=== PATIENT | male | born 1940 | race Caucasian/White ===

== ENCOUNTER 2017-02-20 17:21 | Inpatient (IN) | payer MEDICARE ==
[2017-02-20 18:22] LABS: Hematocrit 38 % (42-52); Hemoglobin 11.9 g/dl (14.0-18.0); Mean Corpuscular HGB Conc 31 g/dl (31-36); Mean Corpuscular Hemoglobin 26 pg (27-31); Mean Corpuscular Volume 83 fL (80-94); Mean Platelet Volume 8 um3 (7.4-10.4); Red Blood Count 4.57 10^6/ul (4.0-5.4); Red Cell Distribution Width 19 % (10.5-15); White Blood Count 7.6 10^3/ul (3.5-10.8)
[2017-02-20 18:33] LABS: Albumin 3.6 g/dL (3.2-5.2); BUN/Creatinine Ratio 17.8 (8-20); C Reactive Protein 15.29 mg/L (< 5.00); Calcium 9.3 mg/dL (8.6-10.3); EGFR African American 86.9 (>60); EGFR Non-African American 67.6 (>60); Globulin 3.5 g/dL (2-4); Potassium 3.6 mmol/L (3.5-5.0); Total Bilirubin 0.9 mg/dL (0.2-1.0); Total Protein 7.1 g/dL (6.4-8.9)
--- NOTE | 2017-02-20 18:48 | RAD ---
INDICATION: Intracranial injury. Patient is on Coumadin COMPARISON: None TECHNIQUE: Noncontrast axial source images were acquired from the skull base to the vertex. FINDINGS: Ventricles/sulci: The ventricles and cisterns are normal in size and configuration for age. Brain parenchyma: There is no focal parenchymal finding, evidence of intracranial mass, or intracranial mass effect. Intracranial hemorrhage:None. Extra-axial spaces: There are no abnormal extra axial fluid collections or evidence of extra-axial mass. Calvarium: There is no calvarial fracture or other calvarial abnormality. Scalp: There is no evidence of scalp or extracalvarial soft tissue abnormality. Paranasal sinuses/mastoid: The paranasal sinuses and mastoid air cells are clear. Other: None. IMPRESSION: No acute intracranial findings
--- NOTE | 2017-02-20 19:13 | RAD ---
INDICATION: Right hip fracture COMPARISON: None TECHNIQUE: An AP supine view is submitted. FINDINGS: Bones/Soft Tissues: There are no acute bony findings. Cardiomediastinal: The correct silhouette and central pulmonary vessels and interstitium are prominent compatible with mild interstitial congestion. Lungs: There are no infiltrates. Pleura: There are no pleural effusions. Other: None IMPRESSION: MILD INTERSTITIAL CONGESTION.
--- NOTE | 2017-02-20 19:14 | RAD ---
INDICATION: Right hip fracture COMPARISON: None TECHNIQUE: An AP view of the pelvis and AP views and crosstable lateral views of the right hip were acquired. FINDINGS: Bones: There is an intratrochanteric fracture of the right femur with resultant varus deformity. Joint spaces: The femoral heads are seated in the acetabula. SI joints/symphysis: The SI joints and symphysis are intact. Other: None IMPRESSION: INTERTROCHANTERIC FRACTURE RIGHT FEMUR
[2017-02-20] MEDS ORDERED: NS 0.9% 1000 ML* 1,000 ML IV ONE (19:28)
[2017-02-20] MEDS ORDERED: Ondansetron INJ* 2 MG/ML VIAL IV ONE (19:28)
[2017-02-20] MEDS ORDERED: HYDROmorphone* 1 MG/ML 1 ML SYR IV ONE (19:28)
--- NOTE | 2017-02-20 20:03 | ED ---
Christian Ang Erika, scribed for Christina Harding MD on 02/20/17 at 1932 . Lower Extremity - HPI Summary HPI Summary: Patient is a 76-year-old male presenting to the ED with his and children with a CC of right hip pain s/p mechanical fall around 16:00 today. Patient reports that he was taking his shirt in the bathroom when he tripped and fell. Patient states he was not dizzy before the fall. He denies headache, and does not think he hit his head. Patient was discharged from [facility] on 01/25 after another fall, and slowly began walking without a walker. Hx CHF - uses home O2. Hx COPD. Patient takes a blood thinner. He denies Hx ID, stroke, CABG. Patient does not smoke, drink, or use drugs. He is followed by Dr. Zepeda. - History of Current Complaint Chief Complaint: EDExtremityLower Stated Complaint: FALL-HIP INJURY Time Seen by Provider: 02/20/17 17:43 Hx Obtained From: Patient, Family/[employer] Clerk Mechanism Of Injury: Fall From A Standing Position Onset of Pain: Post Accident Onset/Duration: Hours Severity Currently: Moderate Pain Intensity: 8 Pain Scale Used: 0-10 Numeric Timing: Constant Location: Is Discrete @ - R hip Associated Signs And Symptoms: Negative: Dizziness, Syncope Aggravating Factor(s): Weight Bearing - Allergies/Home Medications Allergies/Adverse Reactions: Allergies Allergy/AdvReac Type Severity Reaction Status Date / Time Penicillins [PCN] Allergy Unknown Verified 02/20/17 19:49 Reaction Details PMH/Surg Hx/FS Hx/Imm Hx Endocrine/Hematology History: Reports: Hx Diabetes Cardiovascular History: Reports: Hx Atrial Fibrillation, Hx Congestive Heart Failure, Hx Hypertension Denies: Hx Myocardial Infarction Respiratory History: Reports: Hx Chronic Obstructive Pulmonary Disease (COPD) Infectious Disease History: No Infectious Disease History: Denies: Traveled Outside the [place] in Last 30 Days - Family History Known Family History: Negative: Diabetes - Social History Lives: With Family Alcohol Use: None Hx Substance Use: No Substance Use Type: Reports: None Hx Tobacco Use: No Smoking Status (MU): Never Smoked Tobacco Review of Systems Positive: Arthralgia - R hip Negative: Headache, Syncope All Other Systems Reviewed And Are Negative: Yes Physical Exam Triage Information Reviewed: Yes Vital Signs On Initial Exam: Initial Vitals Temp Pulse Resp BP Pulse Ox 98.1 F 95 26 117/56 99 02/20/17 17:44 02/20/17 17:44 02/20/17 17:44 02/20/17 17:44 02/20/17 17:44 Vital Signs Reviewed: Yes Appearance: Positive: Well-Appearing, No Pain Distress Skin: Positive: Warm, Skin Color Reflects Adequate Perfusion, Dry Eyes: Positive: EOMI, MARSHALL ENT: Positive: Pharynx normal, TMs normal Neck: Positive: Supple, Nontender Respiratory/Lung Sounds: Positive: Clear to Auscultation, Breath Sounds Present , Other - Tachypnic, seems to be at baseline. Negative: Rales, Rhonchi, Wheezes Cardiovascular: Positive: RRR, Other - No gallops. Negative: Murmur, Rub Abdomen Description: Positive: Nontender, Soft, Other: - No rebound. Negative: Distended, Guarding Bowel Sounds: Positive: Present Musculoskeletal: Positive: Other - Right hip is externally rotated. Right toes are warm, difficult to feel pulse secondary to edema. There is 2+ edema to the mid thigh of the bilateral lower extremities, with no erythema Neurological: Positive: Sensory/Motor Intact, Alert, Oriented to Person Place, Time, Other - CN II-XII intact Psychiatric: Positive: Affect/Mood Appropriate - Mora Coma Scale Coma Scale Total: 15 Diagnostics - Vital Signs Vital Signs Temp Pulse Resp BP Pulse Ox 02/20/17 18:00 58 26 117/56 97 02/20/17 17:46 59 22 100 02/20/17 17:44 98.1 F 95 26 117/56 99 - Laboratory Lab Results: Lab Results 02/20/17 02/20/17 02/20/17 Range/Units 18:00 18:00 18:00 WBC 7.6 (3.5-10.8) 10^3/ul RBC 4.57 (4.0-5.4) 10^6/ul Hgb 11.9 L (14.0-18.0) g/dl Hct 38 L (42-52) % MCV 83 (80-94) fL MCH 26 L (27-31) pg MCHC 31 (31-36) g/dl RDW 19 H (10.5-15) % Plt Count 208 (150-450) 10^3/ul MPV 8 (7.4-10.4) um3 Neut % (Auto) 84.4 H (38-83) % Lymph % (Auto) 4.5 L (25-47) % [place] % (Auto) 6.5 (1-9) % Eos % (Auto) 2.3 (0-6) % Baso % (Auto) 2.3 H (0-2) % Absolute Neuts (auto) 6.4 (1.5-7.7) 10^3/ul Absolute Lymphs (auto) 0.3 L (1.0-4.8) 10^3/ul Absolute Monos (auto) 0.5 (0-0.8) 10^3/ul Absolute Eos (auto) 0.2 (0-0.6) 10^3/ul Absolute Basos (auto) 0.2 (0-0.2) 10^3/ul Absolute Nucleated RBC 0 10^3/ul Nucleated RBC % 0.1 INR (Anticoag Therapy) 2.83 H (0.89-1.11) Sodium 142 (133-145) mmol/L Potassium 3.6 (3.5-5.0) mmol/L Chloride 97 L (101-111) mmol/L Carbon Dioxide 42 H* (22-32) mmol/L Anion Gap 3 (2-11) mmol/L BUN 19 (6-24) mg/dL Creatinine 1.07 (0.67-1.17) mg/dL Est GFR ( Amer) 86.9 (>60) Est GFR (Non-Af Amer) 67.6 (>60) BUN/Creatinine Ratio 17.8 (8-20) Glucose 113 H (70-100) mg/dL POC Glucose (mg/dL) (74-106) mg/dL Calcium 9.3 (8.6-10.3) mg/dL Total Bilirubin 0.90 (0.2-1.0) mg/dL AST 14 (13-39) U/L ALT 9 (7-52) U/L Alkaline Phosphatase 184 H (34-104) U/L C-Reactive Protein 15.29 H (< 5.00) mg/L Total Protein 7.1 (6.4-8.9) g/dL Albumin 3.6 (3.2-5.2) g/dL Globulin 3.5 (2-4) g/dL Albumin/Globulin Ratio 1.0 (1-3) 02/20/17 Range/Units 19:46 WBC (3.5-10.8) 10^3/ul RBC (4.0-5.4) 10^6/ul Hgb (14.0-18.0) g/dl Hct (42-52) % MCV (80-94) fL MCH (27-31) pg MCHC (31-36) g/dl RDW (10.5-15) % Plt Count (150-450) 10^3/ul MPV (7.4-10.4) um3 Neut % (Auto) (38-83) % Lymph % (Auto) (25-47) % [place] % (Auto) (1-9) % Eos % (Auto) (0-6) % Baso % (Auto) (0-2) % Absolute Neuts (auto) (1.5-7.7) 10^3/ul Absolute Lymphs (auto) (1.0-4.8) 10^3/ul Absolute Monos (auto) (0-0.8) 10^3/ul Absolute Eos (auto) (0-0.6) 10^3/ul Absolute Basos (auto) (0-0.2) 10^3/ul Absolute Nucleated RBC 10^3/ul Nucleated RBC % INR (Anticoag Therapy) (0.89-1.11) Sodium (133-145) mmol/L Potassium (3.5-5.0) mmol/L Chloride (101-111) mmol/L Carbon Dioxide (22-32) mmol/L Anion Gap (2-11) mmol/L BUN (6-24) mg/dL Creatinine (0.67-1.17) mg/dL Est GFR ( Amer) (>60) Est GFR (Non-Af Amer) (>60) BUN/Creatinine Ratio (8-20) Glucose (70-100) mg/dL POC Glucose (mg/dL) 127 H (74-106) mg/dL Calcium (8.6-10.3) mg/dL Total Bilirubin (0.2-1.0) mg/dL AST (13-39) U/L ALT (7-52) U/L Alkaline Phosphatase (34-104) U/L C-Reactive Protein (< 5.00) mg/L Total Protein (6.4-8.9) g/dL Albumin (3.2-5.2) g/dL Globulin (2-4) g/dL Albumin/Globulin Ratio (1-3) Result Diagrams: 02/20/17 18:00 02/20/17 18:00 Lab Statement: Any lab studies that have been ordered have been reviewed, and results considered in the medical decision making process. - Radiology CXR Radiology Interpretation Completed By: Radiologist - IMPRESSION: MILD INTERSTITIAL CONGESTION. R Hip XR Radiology Interpretation Completed By: Radiologist - IMPRESSION: INTERTROCHANTERIC FRACTURE RIGHT FEMUR - CT Brain CT CT Interpretation Completed By: Radiologist - IMPRESSION: No acute intracranial findings - EKG 19:00 Cardiac Rate: Tachycardia - at 114 bpm EKG Rhythm: Atrial Fibrillation ST Segment: Non-Specific Ectopy: PVCs EKG Interpretation: LVH Re-Evaluation - Re-Evaluation First Eval Re-Evaluation Time: 19:40 Comment: Discussed admission Lower Extremity Course/Dx - Course Course Of Treatment: call made to Dr. Alvarez to make her aware of pt, Dr. Martinez accepted pt onto hospitalist service - Diagnoses Provider Diagnoses: Hip fracture - Physician Notifications Discussed Care of Patient With: Dr. Alvarez (orthopedics) at 19:33 - recommends admission. Dr. Martinez (hospitalist) at 19:34 - agrees to admit Discharge - Discharge Plan Condition: Stable Disposition: ADMITTED TO [facility] Referrals: Duane GALEANA,Steffi Barragan [Primary Care Provider] - The documentation as recorded by the Christian avila Erika accurately reflects the service I personally performed and the decisions made by me, Christina Harding MD.
[2017-02-20] MEDS ORDERED: Magnesium Hydroxide LIQ* 30 ML UDC PO PRN (20:04)
[2017-02-20] MEDS ORDERED: Al Hydrox/Mg Hydrox/Simet LIQ* 30 ML UDC PO PRN (20:04)
[2017-02-20] MEDS ORDERED: Ondansetron INJ* 2 MG/ML VIAL IV PRN (20:04)
[2017-02-20] MEDS ORDERED: oxyCODONE/Acetamin 5/325 MG* TAB PO PRN (20:04)
[2017-02-20] MEDS ORDERED: Acetaminophen TAB* 325 MG PO PRN (20:04)
[2017-02-20] MEDS ORDERED: Phytonadione Oral Solution* 5 MG/25 ML UDC PO ONE (20:18)
[2017-02-20] MEDS ORDERED: Dextrose 50% Syringe 50 ML* 25 GM/50 ML SYRINGE IV PUSH PRN ×2 (20:19→20:20)
[2017-02-20 20:27] LABS: Troponin I 0.03 ng/mL (<0.04)
[2017-02-20] MEDS ORDERED: Potassium Chlor TAB* 20 MEQ TAB.ER PO ONE (20:39)
[2017-02-20] MEDS: Insulin GLARGINE(*) 1 UNITS UNIT SUBCUT SCH (23:09)
[2017-02-20] MEDS: Docusate CAP* 100 MG PO SCH (23:09)
[2017-02-20] MEDS: Senna TAB PO SCH (23:09)
[2017-02-20] MEDS: Carvedilol TAB* 6.25 MG PO SCH (23:09)
[2017-02-21] MEDS: Omeprazole CAP* 20 MG PO SCH (05:12)
[2017-02-21 06:08] LABS: Hematocrit 32 % (42-52); Hemoglobin 9.8 g/dl (14.0-18.0); Mean Corpuscular HGB Conc 31 g/dl (31-36); Mean Corpuscular Hemoglobin 26 pg (27-31); Mean Corpuscular Volume 84 fL (80-94); Mean Platelet Volume 8 um3 (7.4-10.4); Red Blood Count 3.74 10^6/ul (4.0-5.4); Red Cell Distribution Width 19 % (10.5-15); White Blood Count 9.4 10^3/ul (3.5-10.8)
[2017-02-21 06:26] LABS: BUN/Creatinine Ratio 17.3 (8-20); Calcium 8.5 mg/dL (8.6-10.3); EGFR African American 71.3 (>60); EGFR Non-African American 55.4 (>60); Globulin 2.8 g/dL (2-4); Potassium 4.6 mmol/L (3.5-5.0); Total Bilirubin 0.7 mg/dL (0.2-1.0); Total Protein 5.8 g/dL (6.4-8.9)
--- NOTE | 2017-02-21 07:26 | HP ---
HISTORY AND PHYSICAL: DATE OF ADMISSION: 02/20/17 TIME OF EVALUATION: 2000 hours. PRIMARY CARE PHYSICIAN: Steffi Zepeda MD CHIEF COMPLAINT: Right hip pain. HISTORY OF PRESENT ILLNESS: This is a 76-year-old male with a past medical history of congestive heart failure; diabetes; and atrial fibrillation, on Coumadin, who presented to the emergency room via EMS after falling, losing his balancing in the bathroom and injuring his right hip. The patient states he had been doing well. He was recently hospitalized at [facility] for congestive heart failure, was in the ICU briefly. He also had hypercapnic respiratory failure from January 11 to January 25. He was discharged to home, has been improving with his ambulation. He climbed a flight of stairs today without any shortness of breath or chest pain. He was in the bathroom today and taking his short off, he lost his balance, and tripped over the rug and fell. He denied any loss of consciousness. No head injury. He denied any lightheadedness or dizziness or chest pain or shortness of breath prior to or after the fall. His only complaint is right hip pain at this time. In the emergency room, the patient had imaging, labs, and was found to have a right femur intertrochanteric fracture. Otherwise remaining review of systems is negative. In the emergency room, the patient had received 0.5 mg of Dilaudid, Zofran 4 mg, and was referred to the hospitalist service for further evaluation. PAST MEDICAL HISTORY: 1. History of congestive heart failure, unspecified type. 2. Diabetes. 3. GERD. 4. Atrial fibrillation. 5. Hyperlipidemia. 6. Recent admission from [facility] January 11 to January 25 for congestive heart failure and hypercapnic respiratory failure, was not intubated at that time, required ICU admission. 7. History of pancreatitis, status post partial pancreatectomy and cholecystectomy in 1990. MEDICATIONS: 1. Humulin 70/30, 15 units in the morning and 20 units in the evening. If under 150, only 10 units in the evening. 2. Simvastatin 40 mg 1 tab at bedtime. 3. Omeprazole 20 mg daily in the morning. 4. Cardizem 100 mg daily in the morning. 5. Lasix 40 mg p.o. b.i.d. 6. Coreg 12.5 mg p.o. b.i.d. 7. Warfarin 5 mg Wednesday, Wednesday, and Wednesday and 2.5 mg Wednesday, Wednesday, , and Wednesday. 8. Multivitamin. ALLERGIES: PENICILLIN and ASPIRIN. FAMILY HISTORY: Mother in her 90s. Father at age 85, unclear of the case. SOCIAL HISTORY: The patient lives at home with his , Ce, who is his health care proxy. He has been walking independently and is dependent of his ADLs. He does not walk with a cane, uses that as needed. He quit smoking more than 26 years ago, was smoking a pack per day up to 30 years. No alcohol use. Code status: DNR/DNI. We will have him fill up the [facility]OL[facility] form here. REVIEW OF SYSTEMS: As mentioned in the HPI. PHYSICAL EXAMINATION GENERAL: In no acute distress. Resting comfortably with his , daughter, and son-in-law at the bedside. VITAL SIGNS: Temp is 98.1, pulse rate 108, respiratory rate 22, oxygen saturation is 90% on 6 L, and blood pressure 103/55. HEENT: Pupils are equal and reactive, anicteric. Head: Normocephalic. Oropharynx: Mucous membranes moist. No erythema or exudate. NECK: Supple. No lymphadenopathy. RESPIRATORY: Diminished breath sounds. No wheezing, rhonchi, or rales. CARDIAC: Irregularly irregular rate and rhythm. Soft systolic murmur heard throughout. ABDOMEN: Morbidly obese, soft, nontender, and nondistended. EXTREMITIES: No clubbing, cyanosis, or edema. Chronic hemosiderin vascular insufficiency changes; +1 DPs. NEUROLOGIC: The patient with a shortened, externally rotated right lower extremity, limited range of motion due to pain. No gross focal neurologic deficits. DIAGNOSTIC STUDIES/LAB DATA: Laboratory data: White count 7.6, hemoglobin 11.9, hematocrit 38, and platelets 208. INR is 2.83. Sodium 142, potassium 3.6 , chloride 97, bicarb 22, BUN 19, creatinine 1.07, and glucose 127. CRP is 15.29. Radiographic data: Chest x-ray: Mild interstitial congestion. EKG shows atrial fibrillation with some ST depression in the lateral leads. Hip and pelvis x-ray: Intertrochanteric fracture of the right femur. Head CT: No acute intracranial findings. ASSESSMENT AND PLAN: This is a 76-year-old male with past medical history of congestive heart failure; diabetes; and atrial fibrillation, on Coumadin, who presents to the emergency room after having a mechanical fall, found to have a right femur intertrochanteric fracture. 1. Fall: Assessment: The patient appears to have a mechanical fall, found to have a right femur intertrochanteric fracture. Dr. Alvarez was notified in the emergency room. Due to the patient's INR being 2.83, no indication for emergent surgery or any surgery in the morning either. Plan: We will give him a dose of vitamin K now and check his INR tomorrow. We will keep him with pain control with morphine, oxycodone, and Tylenol as needed and bowel regimen and follow up with ortho in the morning. There is no absolute contraindication to proceeding with surgery other than normalizing his INR. His RCRI risk scoring is 2 for heart failure and diabetes , on insulin therapy. His MET score is greater than 4 and above as he climbs a flight of stairs without any symptoms today. I would recommend obtaining records from [facility] and getting the echocardiogram that was done there this past month to review that. CHRONIC MEDICAL PROBLEMS: 1. Congestive heart failure: His chest x-ray showed some interstitial edema. His lungs are clear on exam. He is denying any shortness of breath. He was recently admitted for congestive failure and on high doses of Lasix at this time. Plan: We will hold his evening Lasix and reassess him in the morning to see if this should be resumed. We will resume his morning Lasix. 2. Atrial fibrillation: Assessment: As mentioned, the patient is on Coumadin. We will hold this for procedure. His EKG does show some mild ST depression, could be in the setting of his atrial fibrillation, demand ischemia , and fall. We will check a troponin and trend it x2 as he is asymptomatic. Plan: Continue his Cardizem and Coreg and we will keep him on tele for now and we will check a magnesium as well and replete his potassium. 3. Gastroesophageal reflux disease: Continue with omeprazole. 4. Diabetes: We will place him on Lantus and lispro sliding scale. 5. FEN: We will place the patient on diabetic diet. 6. DVT prophylaxis: The patient is therapeutic on Coumadin. We will place him on SCDs and start him on heparin once his INR trends down. 7. Code status: The patient is a DNR/DNI. We discuss for surgery this will be rescinded. He is agreeable to that and will be discussed and presumed with Ortho if surgery does occur. PATIENT TIME: Greater than 90 minutes was spent doing the history and physical , more than half the time was spent in direct patient contact. CC: Steffi Zepeda MD * [id number]/CPS #: [id number] MTDD
[2017-02-21 10:28] LABS: Venous Bicarbonate HCO3 33.8 mmol/L (24-28)
[2017-02-21] MEDS: Insulin LISPRO* 1 UNITS UNIT SUBCUT SCH ×6 (10:36→17:50)
--- NOTE | 2017-02-21 11:58 | RAD ---
INDICATION: Right femoral fracture COMPARISON: Right hip February 20, 2017 TECHNIQUE: AP and lateral views were obtained. FINDINGS: There is again a fracture of the intratrochanteric region of the right femur with comminution and varus deformity. There is a longitudinally oriented component of the fracture involving the proximal diaphysis. There are no additional femoral fractures. IMPRESSION: PROXIMAL FEMORAL FRACTURE DESCRIBED.
[2017-02-21] MEDS ORDERED: LORazepam INJ* 2 MG/ML 1 ML VIAL ONE (12:02)
[2017-02-21] MEDS ORDERED: LORazepam INJ* 2 MG/ML 1 ML VIAL IV PUSH ONE (12:04)
[2017-02-21 13:17] LABS: EPAP 8; FIO2 50; IPAP 18; Resp Rate 12
[2017-02-21 13:24] LABS: PCO2 Arterial 100 mmHg (35-45)
[2017-02-21] MEDS: Furosemide TAB* 40 MG PO SCH (13:36)
[2017-02-21] MEDS: Potassium Chlor TAB* 20 MEQ TAB.ER PO SCH ×2 (13:36→21:55)
[2017-02-21] MEDS: Docusate CAP* 100 MG PO SCH ×2 (13:36→21:55)
[2017-02-21] MEDS: Diltiazem CD CAP* 120 MG PO SCH (13:36)
[2017-02-21] MEDS: Carvedilol TAB* 6.25 MG PO SCH ×2 (13:36→21:55)
[2017-02-21] MEDS: Senna TAB PO SCH ×2 (13:37→21:55)
--- NOTE | 2017-02-21 13:43 | CONSULT ---
Consult Consult: CRITICAL CARE MEDICINE DATE: 02/21/17 TIME: 1330 REFERRING PROVIDER: Yazmin REASON/CHIEF COMPLAINT: acute hypercarbic resp failure on chronic HISTORY OF PRESENT ILLNESS: 76 M with h/o copd, chronic hypercapnic resp failure on 2L O2 at home with recent admission to [facility] with acute on chronic failure requiring ICU. tells me he had a fall there and his breathing was worse after as well. They used nasal cannuli and bipap tx. Never intubated. Ambulates at home. Often non-adherent with O2 and stubborn. REVIEW OF SYSTEMS: As per HPI. PAST MEDICAL HISTORY: As per HPI. Afib on coumadin, chf, dm, gerd, lipids MEDICATIONS: Reviewed. ALLERGIES: Reviewed. SOCIAL HISTORY: Reviewed. . proxy FAMILY HISTORY: Noncontributory at present. PHYSICAL EXAM: Vital Signs: Reviewed. Neurologic: stupor, pupils equal and some stimuli to pain. myoclonus at neck bl ; holds up arms when raised and lowers gently HEENT: anicteric, reactive. +dentures Cardiovascular: S1 S2, irr irr Respiratory: poor air exchange and excursion. placed on bipap with better chest rise, however concern for upper airway obstruction still. no wheeze Abdomen: obese, soft Extremities: R hip changes consistent with his fx Access: poor piv LABS: Reviewed. IMAGING: Reviewed. MEDICATIONS: Reviewed. ASSESSMENT: 76 M Acute on chronic hypercarpbic resp failure COPD exac in setting of narcotic use overnight and acute stress of trauma CAF on anticoagulation - therapeutic, although received vit k Uncontrolled DM PLAN: Neurologic: CO2 narcosis - acute on chronic. placed on bipap. however his myoclonus associated with this was not allowing proper bipap flow and seal. given 1mg ativan with dissipation of this. Chose not to give narcan immediately as he will still need pain control and although this may have presipitated his ailment he cannot rescue without bipap regardless now and since we had to give ativan it may have less affect. Therefore give him some time with bipap to see if he can improve CO2 and drive pH over 7.2 where he should improve mentation, and if not quite there may need to try narcan. Doesn't seem like a central process but has been on coumadin, with afib, and post fall. May need another head ct, but can wait on such. Cardiovascular: Low end perfusion. Hemodynamics holding. some dep fluid but wouldn't push one way or the other just yet. f/u rate control needs Respiratory: bipap as above. hope to avoid intubation as wishes were for DNI as well, and he has rescued previously with bipap. can start a pulse of steroids for what it is worth without wheeze Gastrointestinal: npo. Renal/Metabolic: Cr had gone up post diuretics last pm. has intestinal volume and allow him a recovery tonicity state to mobilize Infectious Disease: no current Hematology: stable. inr to drift. Endocrine: steroids. f/u insulin needs Musculoskeletal: ortho f/u Psych/Social: updated at length. She is supportive of plans and prefers to avoid intubation as well but would change to trial intubation. Supportive and preventative care as ordered. SUP: ppi if remaining npo for long VTE prophylaxis: heparin Disposition: ICU; at risk for intubation needs Code Status: DNR Critical Care Time: 55min FCira Chand DO
[2017-02-21] MEDS ORDERED: Naloxone* 0.4 MG/ML 1 ML VIAL IV PUSH ONE (13:59)
[2017-02-21] MEDS: methylPREDNISolone SOD SUCC* 40 MG/ML VIAL IV SCH ×2 (14:25→22:12)
--- NOTE | 2017-02-21 15:25 | PN ---
Progress Note - Progress Note Note: CRITICAL CARE MEDICINE DATE: 02/21/17 TIME: 1530 Slowly showing some improvement. Certainly better signs of ventilation on bipap now with TV ~600mls. Daughter and grandkids arrived. We re-discussed dynamics and again discussed avoiding intubation as best option for him overall currently. Explained why not to repeat abg at moment and to continue to observe clinical status. If still not able to progress to improved lucency tonight then may require intubation, and family is in agreement. We discussed many ailments assocaited with this route but they again express understanding. Pt starting to move more spont and attempted eye opening and simple command follows but still obtunded. Close follow and keep bipap until he is lucid, otherwise can continue to wear through night. o2 stable and pH >7.2 ICU care. Code Status: DNR, trial intubation Critical Care Time: 15min Cruz Chand DO
--- NOTE | 2017-02-21 15:58 | PN ---
Progress Note - Progress Note Note: CRITICAL CARE MEDICINE DATE: 02/21/17 TIME: 1600 More awake. Following commands, just lethargic now. Improving. Family updated at bedside. Keep bipap another 2 hours or so and see if he can come off then to communicate. May have sips tonight but then needs bipap overnight. Code Status: DNR, trial intubation Critical Care Time: 5min Cruz Chand DO
--- NOTE | 2017-02-21 17:52 | PN ---
Subjective Date of Service: 02/21/17 Interval History: . Interviewed and examined patient at bedside; Discussed case with Dr. Martinez ; Reviewed previous notes and radiology results; patient is very lethargic this AM and state VBG revealed pCO2 > 110 --> urgent transfer to ICU initiated for BiPAP. Presumably, opiate suppression of respirations, then spiraling CO2 narcosis. Has suffered hypercarbic respiratory failure in recent hospitalization. DNI - but will accept NIPPV as per , and even ETT/MV if needed, but understandably we would like to support with NIPPV if possible. . Family History: Unchanged from Admission Social History: Unchanged from Admission Past Medical History: Unchanged from Admission Objective Active Medications: . Acetaminophen (Tylenol Tab*) 650 mg PO Q4H PRN PRN Reason: FEVER/PAIN Al Hydrox/Mg Hydrox/Simethicone (Maalox Plus*) 30 ml PO Q6H PRN PRN Reason: INDIGESTION Carvedilol (Coreg Tab*) 12.5 mg PO BID [facility] Last Admin: 02/21/17 13:36 Dose: Not Given Dextrose (D50w Syringe 50 Ml*) 12.5 gm IV PUSH .FOR FS < 60 - SS PRN PRN Reason: FS < 60 Diltiazem HCl (Cardizem Cd Cap*) 120 mg PO DAILY [facility] Last Admin: 02/21/17 13:36 Dose: Not Given Docusate Sodium (Colace Cap*) 100 mg PO BID [facility] Last Admin: 02/21/17 13:36 Dose: Not Given Furosemide (Lasix Tab*) 40 mg PO DAILY [facility] Last Admin: 02/21/17 13:36 Dose: Not Given Insulin Glargine (Lantus(*)) 10 units SUBCUT Q24H [facility] Last Admin: 02/20/17 23:09 Dose: 10 units Insulin Human Lispro (Humalog*) 0 units SUBCUT AC [facility] PRN Reason: Protocol Last Admin: 02/21/17 12:17 Dose: Not Given Insulin Human Lispro (Humalog*) 0 units SUBCUT AC [facility] PRN Reason: Protocol Last Admin: 02/21/17 12:28 Dose: Not Given Magnesium Hydroxide (Milk Of Magnesia Liq*) 30 ml PO Q4H PRN PRN Reason: CONSTIPATION Methylprednisolone Sodium Succinate (Solu-Medrol*) 40 mg IV Q8H [facility] Last Admin: 02/21/17 14:25 Dose: 40 mg Morphine Sulfate (Morphine Inj (Syringe)*) 2 mg IV Q2H PRN PRN Reason: PAIN Omeprazole (Prilosec Cap*) 20 mg PO 0600 [facility] Last Admin: 02/21/17 05:12 Dose: 20 mg Ondansetron HCl (Zofran Inj*) 4 mg IV Q4H PRN PRN Reason: NAUSEA/VOMITING Oxycodone/Acetaminophen (Percocet 5/325 Tab*) 1 tab PO Q4H PRN PRN Reason: Pain Last Admin: 02/21/17 04:46 Dose: 1 tab Potassium Chloride (Klor Con Er Tab*) 20 meq PO BID [facility] Last Admin: 02/21/17 13:36 Dose: Not Given Senna (Senokot Tab*) 1 tab PO BID [facility] Last Admin: 02/21/17 13:37 Dose: Not Given . Vital Signs 02/20/17 02/20/17 02/20/17 20:30 20:36 21:00 Temperature 97.4 F Pulse Rate 128 106 108 Respiratory 29 21 24 Rate Blood Pressure 110/59 88/58 (mmHg) O2 Sat by Pulse 81 96 98 Oximetry 02/20/17 02/20/17 02/21/17 23:19 23:20 03:39 Temperature 98.6 F 97.9 F Pulse Rate 46 108 145 Respiratory 16 16 Rate Blood Pressure 126/54 104/57 (mmHg) O2 Sat by Pulse 92 100 Oximetry Appearance: obtunded 2/2 CO2 narcosis Ears/Nose/Mouth/Throat: Clear Oropharnyx Neck: NL Appearance and Movements; NL JVP Respiratory: Symmetrical Chest Expansion and Respiratory Effort Cardiovascular: NL Sounds; No Murmurs; No JVD Abdominal: NL Sounds; No Tenderness; No Distention Lymphatic: No Cervical Adenopathy Extremities: No Edema Skin: No Rash or Ulcers Neurological: Alert and Oriented x 3 Lines/Tubes/Other Access: Clean, Dry and Intact Peripheral IV Nutrition: - - NPO Result Diagrams: 02/22/17 05:15 02/22/17 05:15 Additional Lab and Data: . Assess/Plan/Problems-Billing . Assessment: 76 yo man with mechanical MV and anticoagulated, now with fal land hip fx -- course immediately complicated by hypercarbic respiratory failure -- being treated with NIPPV/BIPAP. Transfer to ICU for severe hypercarbia (pCO2 > 110). Appreciate Dr. Chand's expert consultation in this case. Current Medications: - Acetaminophen (Tylenol Tab) 650 mg PO Q4H PRN FEVER/PAIN - Al Hydrox/Mg Hydrox/Simethicone (Maalox Plus) 30 ml PO Q6H PRN INDIGESTION - Carvedilol (Coreg Tab) 12.5 mg PO BID [facility] - Dextrose (D50w Syringe 50 Ml*) 12.5 gm IV PUSH .FOR FS < 60 - SS PRN FS < 60 - Diltiazem HCl (Cardizem Cd Cap) 120 mg PO DAILY - Docusate Sodium (Colace Cap) 100 mg PO BID - Furosemide (Lasix Tab) 40 mg PO DAILY - Insulin Glargine (Lantus) 10 units SUBCUT Q24H - Insulin Human Lispro (Humalog) 0 units SUBCUT AC - Insulin Human Lispro (Humalog) 0 units SUBCUT AC - Magnesium Hydroxide (Milk Of Magnesia Liq) 30 ml PO Q4H PRN CONSTIPATION - Methylprednisolone Sodium Succinate (Solu-Medrol) 40 mg IV Q8H - Morphine Sulfate (Morphine Inj (Syringe)) 2 mg IV Q2H PRN PAIN - Omeprazole (Prilosec Cap) 20 mg PO Daily - Ondansetron HCl (Zofran Inj) 4 mg IV Q4H PRN NAUSEA/VOMITING - Oxycodone/Acetaminophen (Percocet 5/325 Tab) 1 tab PO Q4H PRN Pain - Potassium Chloride (Klor Con Er Tab*) 20 meq PO BID [facility] - Senna (Senokot Tab*) 1 tab PO BID [facility] - Patient Problems (1) Acute hypercapnic respiratory failure Current Visit: Yes Status: Acute Priority: High Code(s): J96.02 - ACUTE RESPIRATORY FAILURE WITH HYPERCAPNIA Comment: - STAT valve liner rubber consult - BIPAP acutely - repeat ABG.VBGs as per ICU - poor prognosis (2) Hip fracture Current Visit: Yes Status: Acute Priority: High Code(s): S72.009A - FRACTURE OF UNSP PART OF NECK OF UNSP FEMUR, INIT Comment: - appreciate ortho consult - INR drift down --> switch to IV heparin for bridging - actively stabiizing respi status to allow for repair. - high risk patient given tenuous respiratory status. (3) Anticoagulated on Coumadin Current Visit: Yes Status: Chronic Priority: High Code(s): Z51.81 - ENCOUNTER FOR THERAPEUTIC DRUG LEVEL MONITORING; Z79.01 - [facility] (CURRENT) USE OF ANTICOAGULANTS Comment: - allowing INR to drift downward for posslbe surgery.
[2017-02-21] MEDS: Morphine INJ* 2 MG/ML 1 ML SYRINGE IV PRN (19:05)
--- NOTE | 2017-02-21 21:26 | CONS ---
ORTHOPEDIC CONSULTATION: DATE OF CONSULT: 02/21/17 CHIEF COMPLAINT: Right hip pain. HISTORY OF PRESENT ILLNESS: Mr. Feliciano is a 76-year-old gentleman who had a mechanical fall in his home on 02/20/17. The patient's reports that he lost his balance while taking shorts off in the bathroom and fell on to his right side. He did not have loss of consciousness or head injury. He did not have light headedness or dizziness. He complained of 10/10 right hip pain and was unable to stand or walk, and ambulance was called. Immobilization decreased the pain, any attempt to move the right hip increased the pain. The patient was taken to [facility] Emergency Room and diagnosed with an intertrochanteric hip fracture. Pertinent recent past medical history is recent hospitalization at [facility] for congestive heart failure as well as ICU stay for hypercapnic respiratory failure. The patient was released from [facility] on 01/24/17. I am asked to see the patient for orthopedic fracture care. Today at the bedside all history is obtained from the patient's as he is heavily sedated. PAST MEDICAL HISTORY: Congestive heart failure, history of open tibial wounds, diabetes, morbid obesity, atrial fibrillation, hyperlipidemia, recent respiratory failure admission to [facility], history of pancreatitis. PAST SURGICAL HISTORY: Partial pancreatectomy. CURRENT MEDICATIONS: 1. Humulin 70/30 q.a.m. and p.m. 2. Simvastatin 40 mg p.o. daily. 3. Omeprazole 20 mg p.o. q.a.m. 4. Cardizem 100 mg p.o. q.a.m. 5. Lasix 40 mg p.o. b.i.d. 6. Coreg 12.5 mg p.o. b.i.d. 7. Warfarin dose daily. 8. Multivitamin 1 tablet p.o. daily. ALLERGIES: PENICILLIN and ASPIRIN. FAMILY HISTORY: Unknown. SOCIAL HISTORY: The patient lives with his , normally ambulates with a rolling walker or cane. No tobacco, alcohol or recreational drug use. REVIEW OF SYSTEMS: Positive for recent fall, positive for recent respiratory distress and hospitalization. The patient's denies fevers, chills, chest pain or shortness of breath, nausea, vomiting, headache, or dizziness. Otherwise, review of systems cannot be obtained due to the patient's sedation. PHYSICAL EXAMINATION: Vital signs: Temperature 98.3, pulse of 87, respiratory rate 18, blood pressure 110/59, oxygen saturation 99% on 10L. General: The patient is heavily sedated male, who is morbidly obese in bed. is at the bedside. He does not arouse to calling his name. Pulmonary: The patient's chest shows some labored breathing. Abdomen: Rounded, soft, and nondistended. Extremities: Right lower extremity is externally rotated and shortened. He has superficial blisters along the distal tibia. Color changes with evidence of venostasis and prolonged edema distally on the tibia. No sayda open wounds, no draining open wounds. Thigh is soft and compressible. 1+ palpable DP pulse. RADIOGRAPHS: Multiple views of the patient's right hip were reviewed on the PAC system by me. These show comminuted intertrochanteric hip fracture with some subtrochanteric extension. I have no femur films. LABORATORY DATA: From 02/21/17 show white blood cells 9.4, hematocrit 32, platelets 183. INR 2.47. Sodium 142, potassium 4.6, chloride 99, carbon dioxide 39, creatinine 1.27, BUN 22, glucose 157, alk phos 135. C-reactive protein from 02/20/17 15.29. ASSESSMENT AND PLAN: Mr. Feliciano is a 76-year-old gentleman status post fall on 02/20/17 with a displaced comminuted right intertrochanteric hip fracture with subtrochanteric extension. Today, the patient is heavily sedated with some mild labored breathing. He is on high O2 by non-rebreather mask. I have asked medicine team to see the patient as he may need some Narcan versus an ABG. For now, I had a long discussion with the patient's , who is at the bedside. I feel the risk of morbidity or mortality for this patient is very high. We discussed the risks and benefits of operative and nonoperative treatment. She would like to proceed with operative treatment. I feel he is at high risk for having postoperative complications including . My plan will be cephalomedullary device for the right intertrochanteric hip fracture. I will order films of the femur before proceeding. Goal INR would be around 1.0. We will continue reversal of the patient's INR. I will check on the patient tomorrow, 02/22/17, and if his INR is appropriate, we can proceed with surgery. If not, we will plan for 02/23/17 ORIF of the right hip fracture. The patient's understands the plan and her question are answered. Thank you for this orthopedic consultation. [id number]/[facility] #: [id number] LETI
[2017-02-21] MEDS: Insulin GLARGINE(*) 1 UNITS UNIT SUBCUT SCH (21:56)
[2017-02-22] MEDS: Morphine INJ* 2 MG/ML 1 ML SYRINGE IV PRN ×5 (02:09→20:32)
[2017-02-22 05:25] LABS: Hematocrit 30 % (42-52); Hemoglobin 9.4 g/dl (14.0-18.0); Mean Corpuscular HGB Conc 32 g/dl (31-36); Mean Corpuscular Hemoglobin 26 pg (27-31); Mean Corpuscular Volume 84 fL (80-94); Mean Platelet Volume 8 um3 (7.4-10.4); Red Blood Count 3.54 10^6/ul (4.0-5.4); Red Cell Distribution Width 18 % (10.5-15); White Blood Count 6.7 10^3/ul (3.5-10.8)
[2017-02-22 05:40] LABS: BUN/Creatinine Ratio 19.2 (8-20); Calcium 8.6 mg/dL (8.6-10.3); EGFR Non-African American 30.4 (>60); Magnesium 2.1 mg/dL (1.9-2.7); Phosphorus 4.7 mg/dL (2.5-5.0); Potassium 5.4 mmol/L (3.5-5.0)
[2017-02-22] MEDS: methylPREDNISolone SOD SUCC* 40 MG/ML VIAL IV SCH ×2 (05:41→14:19)
[2017-02-22] MEDS: Omeprazole CAP* 20 MG PO SCH (05:44)
[2017-02-22] MEDS ORDERED: NS 0.9% 1000 ML* 1,000 ML IV ONE (08:13)
[2017-02-22] MEDS ORDERED: Heparin DRIP 25,000 UNITS(*) 25,000 UNITS/500 ML BAG IV SCH (08:15)
[2017-02-22] MEDS: Insulin LISPRO* 1 UNITS UNIT SUBCUT SCH ×5 (08:29→16:10)
--- NOTE | 2017-02-22 08:29 | RAD ---
HISTORY: Right shoulder pain COMPARISONS: None VIEWS: 3, frontal and outlet views of the right shoulder FINDINGS: BONE DENSITY: There is diffuse osteopenia. BONES: There is no displaced fracture. JOINTS: There is osteoarthritis of the a.c. and glenohumeral joints. There is near complete effacement of the acromiohumeral interval ALIGNMENT: There is no dislocation. SOFT TISSUES: Unremarkable. OTHER FINDINGS: None. IMPRESSION: 1. OSTEOPENIA. 2. OSTEOARTHRITIS. 3. EFFACEMENT OF THE ACROMIOHUMERAL INTERVAL SUGGESTIVE OF CHRONIC ROTATOR CUFF INJURY. 4. NO ACUTE OSSEOUS INJURY. THE DEGREE OF OSTEOPENIA MAY MAKE A NONDISPLACED FRACTURE RADIOGRAPHICALLY OCCULT. IF SYMPTOMS PERSIST, RECOMMEND REPEAT IMAGING.
[2017-02-22] MEDS ORDERED: Heparin VIAL(*) 5000 UNITS/ML VIAL (FIVE THOUSAND) IV SCH (09:00)
[2017-02-22 09:09] LABS: FIO2 2
[2017-02-22 09:13] LABS: PCO2 Arterial 47 mmHg (35-45)
[2017-02-22] MEDS: Furosemide TAB* 40 MG PO SCH (09:15)
[2017-02-22] MEDS: Senna TAB PO SCH ×2 (09:15→19:24)
[2017-02-22] MEDS: Carvedilol TAB* 6.25 MG PO SCH (09:15)
[2017-02-22] MEDS: Diltiazem CD CAP* 120 MG PO SCH (09:15)
[2017-02-22] MEDS: Potassium Chlor TAB* 20 MEQ TAB.ER PO SCH (09:15)
[2017-02-22] MEDS: Docusate CAP* 100 MG PO SCH (09:15)
[2017-02-22] MEDS ORDERED: Morphine INJ* 2 MG/ML 1 ML SYRINGE IV PRN (10:44)
[2017-02-22] MEDS ORDERED: traMADol TAB* 50 MG PO PRN (10:44)
--- NOTE | 2017-02-22 11:54 | ECHO ---
Patient: NEREIDA MCKINNEY [facility] Rec#: [id number] : 1940 Date: 02/22/2017 Age: 76y Height: 177.8 cm / 70.0 in Weight: 109.77 kg / 241.9 lbs Sex: M BSA: 2.26 Room[id number] Admit Date#: 02/20/2017 Type: Inpatient Referring: Jeromy Arce MD Reading: Curtis Garza MD Assistant Technician: Maya Motta VALENTINA CC: Steffi Zepeda MD Transthoracic Echocardiogram Indication: CHF//Abn EKG BP: 115/63 HR: 140 Rhythm: A-Fib Findings History: Recent hypercarbic resp. failure while in [place],CHF,GERD,DM,HLD,COPD,a-fib. Study accomplishsed with pt supine and HOB at 75degrees. Technical Comments: The study is technically limited due to the patient's history of COPD. Completed at 1029. The study was technically limited due to the patient's inability to lay in the left lateral decubitus position. Left Ventricle: The left ventricular chamber size is normal. Moderate concentric left ventricular hypertrophy is observed. Global left ventricular wall motion and contractility are within normal limits. There is normal left ventricular systolic function. The estimated ejection fraction is 55-60%. The patient was unable to perform a Valsalva maneuver. Left Atrium: The left atrium is moderate to severely dilated. Right Ventricle: Moderator Band present. The right ventricular cavity size is normal. The right ventricular global systolic function is moderately reduced. Right Atrium: The right atrium is moderate to severely dilated. Aortic Valve: The aortic valve is trileaflet. The aortic valve leaflets are mildly thickened. There is no evidence of aortic regurgitation. There is no evidence of aortic stenosis. Mitral Valve: The mitral valve leaflets are mildly thickened. There is a trace of mitral regurgitation. There is no evidence of mitral stenosis. Tricuspid Valve: The tricuspid valve leaflets are normal. There is mild to moderate tricuspid regurgitation. There is evidence of moderate pulmonary hypertension. There is no tricuspid stenosis. Pulmonic Valve: The pulmonic valve appears normal. There is trace to mild pulmonic regurgitation. There is no pulmonic stenosis. Pericardium: There is no pericardial effusion. A pericardial fat pad is visualized. Aorta: There is no dilatation of the ascending aorta. The aortic arch is not well visualized. There is mild dilatation of the aortic root. Pulmonary Artery: The main pulmonary artery appears normal. Venous: The venous system is not well visualized. Summary: There was not any prior study for comparison. Conclusions Moderate concentric left ventricular hypertrophy is observed. Global left ventricular wall motion and contractility are within normal limits. There is normal left ventricular systolic function. The estimated ejection fraction is 55-60%. The left atrium is moderate to severely dilated. The right ventricular global systolic function is moderately reduced. The aortic valve leaflets are mildly thickened. There is no evidence of aortic regurgitation. There is a trace of mitral regurgitation. There is mild to moderate tricuspid regurgitation. There is evidence of moderate pulmonary hypertension. There is no pericardial effusion. Measurements Name Value Normal Range RVIDd (AP) 2D 3.5 cm (0.9 - 2.6) RVDdMajor (2D) 4.4 cm (2.2 - 4.4) RAd ISD 4CH 7.1 cm (3.4 - 4.9) RA (A4C)W 5.6 cm (2.9 - 4.6) IVSd (2D) 1.8 cm (0.6 - 1) LVPWd (2D) 1.3 cm (0.6 - 1) LVIDd (2D) 3.5 cm (3.6 - 5.4) LVIDs (2D) 2.6 cm - LV FS (2D) 25 % (25 - 45) Aortic Annulus 2.2 cm (1.4 - 2.6) Ao root diameter (2D) 3.8 cm (2.1 - 3.5) Ascending Ao 3 cm (2.1 - 3.4) LA dimension (AP) 2D 5.1 cm (2.3 - 3.8) LAd ISD 4CH 7.1 cm (2.9 - 5.3) LA ISD 4CH W 5 cm (2.5 - 4.5) Name Value Normal Range LA ESV SP 4CH (A/L) 118 ml - LA ESV SP 2CH (A/L) 64 ml - LA ESV BP (A/L) 90 ml - LA ESV BP (A/L) index 39.75 ml/m2 - LA ESV SP 4CH (MOD) 110 ml - LA ESV SP 2CH (MOD) 64 ml - Name Value Normal Range MV E-wave Vmax 1.2 m/sec - MV deceleration time 161 msec - LV septal e' Vmax 0.11 m/sec - LV lateral e' Vmax 0.14 m/sec - LV E:e' septal ratio 10.9 ratio - LV E:e' lateral ratio 8.57 ratio - Name Value Normal Range AV Vmax 1.6 m/sec - AV VTI 24.2 cm - AV peak gradient 10.2 mmHg - AV mean gradient 5.09 mmHg - LVOT Vmax 1 m/sec - LVOT VTI 17.1 cm - LVOT peak gradient 3.68 mmHg - LVOT mean gradient 1.87 mmHg - Name Value Normal Range TR Vmax 3.4 m/sec - TR peak gradient 45 mmHg - RAP 8 mmHg - RVSP 53 mmHg - Name Value Normal Range PV Vmax 0.9 m/sec - PV peak gradient 3.37 mmHg -
[2017-02-22] MEDS ORDERED: LORazepam INJ* 2 MG/ML 1 ML VIAL IV PUSH PRN (14:04)
[2017-02-22] MEDS ORDERED: Atropine 1% (ORAL/SL)* 15 ML BTL SL PRN (14:04)
[2017-02-22] MEDS ORDERED: Docusate CAP* 100 MG PO PRN (14:06)
--- NOTE | 2017-02-22 14:07 | PN ---
Progress Note - Progress Note Note: Palliative care follow up Spoke with Dr. Arce, Dr. Chand and the at length. The wants him to be comfort measures and does not want to proceed with surgery. Patient now more lethargic and confused. Will place comfort care orders in place.
[2017-02-22 17:10] VITALS: BP 110/57
[2017-02-22] MEDS: Morphine ORAL CONCENTRATE* 5 MG/0.25 ML ORAL.SYRIN SL PRN ×2 (17:37→20:03)
--- NOTE | 2017-02-22 18:27 | PN ---
Subjective Date of Service: 02/22/17 Interval History: . long complex day with this unfortunate patient. Was doing ok initially - pCO2 down to 50's on BiPAP. BiPAP removed to assess ability to do without --> immediately deteriorated. + pain all over. exclaiming "I'm dying" - at bedside. Long discussion about ability to withstand surgery and, ultimately decided that she will not opt for surgery. he does not want to go to [place] and be intubated more than briefly (i.e. for surgery) and I cannot guarantee that. In fact, his recently demonstrated propensity for hypercarbia makes it LIKELY he will need longer respiratory support. decision for comfort care --> palliative care c/s placed and completed by Dr. Martinez. Comfort care orders placed. patient transferred to . family updated. Family History: Unchanged from Admission Social History: Unchanged from Admission Past Medical History: Unchanged from Admission Objective Active Medications: . Acetaminophen (Tylenol Tab*) 650 mg PO Q4H PRN PRN Reason: FEVER/PAIN Al Hydrox/Mg Hydrox/Simethicone (Maalox Plus*) 30 ml PO Q6H PRN PRN Reason: INDIGESTION Atropine Sulfate (Atropine 1% (Oral/Sl)*) 2 drop SL Q2H PRN PRN Reason: DISCOMFORT Docusate Sodium (Colace Cap*) 100 mg PO BID PRN PRN Reason: CONSTIPATION Insulin Glargine (Lantus(*)) 10 units SUBCUT Q24H [facility] Last Admin: 02/21/17 21:56 Dose: Not Given Insulin Human Lispro (Humalog*) 0 units SUBCUT AC [facility] PRN Reason: Protocol Last Admin: 02/22/17 16:10 Dose: Not Given Lorazepam (Ativan Inj*) 1 mg IV PUSH Q4HR PRN PRN Reason: AGITATION Last Admin: 02/22/17 15:22 Dose: 1 mg Magnesium Hydroxide (Milk Of Magnesia Liq*) 30 ml PO Q4H PRN PRN Reason: CONSTIPATION Morphine Sulfate (Morphine Oral Concentrate*) 2.5 mg SL Q2H PRN PRN Reason: PAIN Last Admin: 02/22/17 17:37 Dose: 2.5 mg Morphine Sulfate (Morphine Inj (Syringe)*) 2 mg IV Q2H PRN PRN Reason: PAIN Last Admin: 02/22/17 14:28 Dose: 2 mg Omeprazole (Prilosec Cap*) 20 mg PO 0600 [facility] Last Admin: 02/22/17 05:44 Dose: Not Given Ondansetron HCl (Zofran Inj*) 4 mg IV Q4H PRN PRN Reason: NAUSEA/VOMITING Senna (Senokot Tab*) 1 tab PO BID [facility] Last Admin: 02/22/17 09:15 Dose: Not Given Tramadol HCl (Ultram*) 50 mg PO Q12H PRN PRN Reason: PAIN . Vital Signs 02/21/17 02/21/17 02/21/17 19:00 19:05 20:00 Temperature 99 F Pulse Rate 128 48 Respiratory 21 36 17 Rate Blood Pressure 107/63 88/57 (mmHg) O2 Sat by Pulse 98 99 Oximetry 02/21/17 02/21/17 02/21/17 21:00 22:00 23:00 Temperature Pulse Rate 96 108 95 Respiratory 21 18 22 Rate Blood Pressure 91/60 104/54 92/51 (mmHg) O2 Sat by Pulse 99 100 98 Oximetry Appearance: elderly, frail. Ears/Nose/Mouth/Throat: Clear Oropharnyx Neck: Trachea Midline Respiratory: Symmetrical Chest Expansion and Respiratory Effort Cardiovascular: NL Sounds; No Murmurs; No JVD Abdominal: NL Sounds; No Tenderness; No Distention Extremities: No Edema, - - L hip shortened, internally rotated Skin: No Rash or Ulcers Neurological: NL Sensation Lines/Tubes/Other Access: Clean, Dry and Intact Peripheral IV Nutrition: - - NPO Result Diagrams: 02/22/17 05:15 02/22/17 05:15 Additional Lab and Data: . Assess/Plan/Problems-Billing . Assessment: 76 yo man with AF, anticoagulated, now with fall and hip fx -- course immediately complicated by hypercarbic respiratory failure -- being treated with NIPPV/BIPAP. Transfer to ICU for severe hypercarbia (pCO2 > 110). Decision for comfort care and NOT orthopedic surgery. Current Medications: - Acetaminophen (Tylenol Tab) 650 mg PO Q4H PRN FEVER/PAIN - Al Hydrox/Mg Hydrox/Simethicone (Maalox Plus) 30 ml PO Q6H PRN INDIGESTION - Carvedilol (Coreg Tab) 12.5 mg PO BID [facility] - Dextrose (D50w Syringe 50 Ml*) 12.5 gm IV PUSH .FOR FS < 60 - SS PRN FS < 60 - Diltiazem HCl (Cardizem Cd Cap) 120 mg PO DAILY - Docusate Sodium (Colace Cap) 100 mg PO BID - Furosemide (Lasix Tab) 40 mg PO DAILY - Insulin Glargine (Lantus) 10 units SUBCUT Q24H - Insulin Human Lispro (Humalog) 0 units SUBCUT AC - Insulin Human Lispro (Humalog) 0 units SUBCUT AC - Magnesium Hydroxide (Milk Of Magnesia Liq) 30 ml PO Q4H PRN CONSTIPATION - Methylprednisolone Sodium Succinate (Solu-Medrol) 40 mg IV Q8H - Morphine Sulfate (Morphine Inj (Syringe)) 2 mg IV Q2H PRN PAIN - Omeprazole (Prilosec Cap) 20 mg PO Daily - Ondansetron HCl (Zofran Inj) 4 mg IV Q4H PRN NAUSEA/VOMITING - Oxycodone/Acetaminophen (Percocet 5/325 Tab) 1 tab PO Q4H PRN Pain - Potassium Chloride (Klor Con Er Tab*) 20 meq PO BID [facility] - Senna (Senokot Tab*) 1 tab PO BID [facility] - Patient Problems (1) Acute hypercapnic respiratory failure Current Visit: Yes Status: Acute Priority: High Code(s): J96.02 - ACUTE RESPIRATORY FAILURE WITH HYPERCAPNIA Comment: - poor px - family opting for comfort care (2) Hip fracture Current Visit: Yes Status: Acute Priority: High Code(s): S72.009A - FRACTURE OF UNSP PART OF NECK OF UNSP FEMUR, INIT Comment: - appreciate ortho consult - family opting for comfort care (3) Anticoagulated on Coumadin Current Visit: Yes Status: Chronic Priority: High Code(s): Z51.81 - ENCOUNTER FOR THERAPEUTIC DRUG LEVEL MONITORING; Z79.01 - [employer] (CURRENT) USE OF ANTICOAGULANTS
[2017-02-22] MEDS: LORazepam INJ* 2 MG/ML 1 ML VIAL IV PUSH PRN (18:44)
[2017-02-22] MEDS: Insulin GLARGINE(*) 1 UNITS UNIT SUBCUT SCH (19:23)
--- NOTE | 2017-02-22 21:11 | PN ---
Progress Note - Progress Note Note: Nursing called reporting inadequate pain control in comfort only care patient. Currently receiving 2mg IV morphine Q2H & 2.5mg liquid morphine PO Q2H. Will add a morphine infusion at 1mg/hr to this regimen with an initial additional bolus of 2mg.
--- NOTE | 2017-02-22 21:31 | CONS ---
PALLIATIVE CARE CONSULTATION: DATE OF CONSULT: 02/22/17 PRIMARY CARE PHYSICIAN: Steffi Zepeda MD REASON FOR CONSULT: Evaluation of goals of care. REQUESTING PHYSICIAN FOR CONSULTATION: Jeromy Arce MD HISTORY OF PRESENT ILLNESS: This is a 76-year-old male with a past medical history of congestive heart failure with a recent admission at [facility] for excessive heart failure and hypercapnic respiratory failure recently and atrial fibrillation who presented to the emergency room on 02/20/17 after having a mechanical fall, found to have a right femur intertrochanteric fracture. The patient was admitted with recommendations for no contraindication for proceeding with surgery. He was given vitamin K for his elevated INR and morphine and oxycodone to help with pain control. On 02/21/17, the patient became more confused and went to hypercapnic respiratory failure on the floor and was transferred to the ICU for BiPAP. Dr. Chand, the cork cutter, was consulted and was able to manage him well on BiPAP alone. The patient because of his altered mental status was not able to get his p.o. Coreg and Cardizem and this morning had some nonsustained VT. However, on my encounter, the patient is alert and oriented. He is denying any pain right now, but he is very emotional. His is emotional as there is concern that surgery is no longer an option and that he may not survive to discharge. The states that she does not want him to go into a [facility] that he would be willing to go for rehab if he were to have surgery, but otherwise she wants to bring him home and she is planning to call her family members to bring them in to say goodbye to him. I discussed with her that I would recommend proceeding with surgery whether it would be here or at a higher level of care for palliative goals either way to optimize his quality of life and his comfort level and she is agreeable to this, but is confused as there has been many suggestions and recommendations regarding his care. The patient is denying any shortness of breath, no chest pain. Otherwise, remaining review of systems is negative. PAST MEDICAL HISTORY: 1. Congestive heart failure, unspecified type. 2. Diabetes. 3. GERD. 4. AFib. 5. Hyperlipidemia. 6. Recent admission to [facility] from January 11 to January 25 for congestive heart failure and hypercapnic respiratory failure. 7. Now with a right femur intertrochanteric fracture with respiratory failure. MEDICATIONS: Inpatient medications are: 1. Tylenol 650 mg every 4 hours as needed. 2. Maalox 30 mL every 6 hours as needed. 3. Carvedilol 12.5 mg p.o. b.i.d. 4. Diltiazem CD 120 mg p.o. daily. 5. Colace 100 mg p.o. b.i.d. 6. Lasix 40 mg p.o. daily. 7. Heparin drip. 8. Lantus 10 units subcu daily. 9. Lispro sliding scale. 10. Morphine 2 mg every 2 hours as needed. 11. Omeprazole 20 mg daily. 12. Zofran 4 mg IV q.4 hours. 13. Potassium chloride 20 mEq p.o. b.i.d. 14. Senna 1 tab p.o. b.i.d. 15. Methylprednisolone 40 mg IV q.8. ALLERGIES: ASPIRIN and PENICILLIN. FAMILY HISTORY: Mother in her 90s, father decreased at age 85 of unclear cause. SOCIAL HISTORY: The patient was residing at home with his , Ce, who is his healthcare proxy. Prior to admission, he was walking independently and independent of ADLs. He does use a walker and a cane as needed. He quit smoking more than 26 years ago, was smoking up to pack per day for 30 years. No alcohol use. No illicit drug use. His code status, his MOLST form has been filled as a DNR/DNI. REVIEW OF SYSTEMS: As mentioned in the HPI. PHYSICAL EXAM: Vital Signs: Temp 98.8, pulse rate 120, respiratory rate 27, oxygen saturation 97% on 4 L, blood pressure 115/63. General: No significant respiratory distress. His is at the bedside. HEENT: Neck is supple. Oropharynx: Mucous membranes are dry. Pupils are pinpoint and reactive and anicteric. Head normocephalic. Cardiac: Rapid irregularly irregular rate and rhythm. A soft systolic murmur heard throughout. Respiratory: Diminished breath sounds expiratory phase. Abdomen is soft, nontender, and nondistended. Extremities: The patient with a short and externally rotated right lower extremity. Neurologic: Alert and oriented x2. Oriented to time and self. He thought he was at [facility]. DIAGNOSTIC STUDIES/LAB DATA: White count 6.7, hemoglobin 9.4, hematocrit 30, platelets 141. INR was 1.83. His blood gas from this morning is 7.4, PCO2 of 47, PO2 is 49. Sodium 140, potassium 5.4, chloride 98, BUN 41, creatinine 2.14 , lactic acid 2.1, glucose 161. RADIOGRAPHIC DATA: As mentioned, hip and pelvis x-ray shows right intertrochanteric fracture. ASSESSMENT: This is a 76-year-old male with a past medical history of congestive heart failure, hypercapnic respiratory failure who presented to the emergency room on 01/20/17 with a mechanical fall, found to have a right femur intertrochanteric fracture. The patient's hospital course has been complicated by hypercapnic respiratory failure in the setting of getting narcotics for his hip fracture requiring BiPAP and transfer to the ICU. He is mentating and more alert at this time. I think that the goals of care need to be more well- addressed whether we have a family meeting or discuss with our all other physicians to get on the same page. I will follow up with Dr. Arce and I did speak with Dr. Chand who agrees that the patient does need hip repair if it is here or at higher level of care. My recommendation is to have Cardiology consulted to optimize his cardiac risk factors and to discuss with Ortho and Anesthesia if he is an adequate patient to have his repaired here, if not to look elsewhere. I think managing his pain is going to be a challenge with his hypercapnic respiratory failure. I will lower his morphine dose to 1 mg q.2 hours and start him on tramadol if he is able to pass the swallow evaluation. I am also going to stop the patient's potassium as his potassium is elevated. Thank you for this consultation, I will follow along with you and follow up with Dr. Arce. PATIENT TIME: Greater than 90 minutes spent during the consultation, more than half the time was spent in direct patient contact. CC: Steffi Zepeda MD* [id number]/[facility] #: [id number] MTDD
[2017-02-22] MEDS ORDERED: Morphine PCA ADULT* 5 MG/ML 30 ML PCA SCH (22:00)
[2017-02-23] MEDS: LORazepam INJ* 2 MG/ML 1 ML VIAL IV PUSH PRN ×2 (03:54→07:25)
[2017-02-23] MEDS: Morphine ORAL CONCENTRATE* 5 MG/0.25 ML ORAL.SYRIN SL PRN (03:55)
[2017-02-23] MEDS: Omeprazole CAP* 20 MG PO SCH (05:13)
[2017-02-23] MEDS: Insulin LISPRO* 1 UNITS UNIT SUBCUT SCH (06:56)
[2017-02-23] MEDS: Senna TAB PO SCH (08:03)
== END 2017-02-23 08:10 | disposition expired | DRG 535 ==
LOC: ED 17:21 → MEDTELE 20:04 → ICU 02-21 12:03 → MED 02-22 16:54
PROVIDERS: ADMIT Pediatrics; ATTEND Internal Medicine
PROC: 5A09457 Assistance with Respiratory Ventilation, 24-96 Consecutive Hours, Continuous Positive Airway Pressure (ICD-10-PCS; principal; 2017-02-21)
DX: S72.141A Displaced intertrochanteric fracture of right femur, initial encounter for closed fracture (principal); J96.02 Acute respiratory failure with hypercapnia; J44.1 Chronic obstructive pulmonary disease with (acute) exacerbation; J96.12 Chronic respiratory failure with hypercapnia; W18.09XA Striking against other object with subsequent fall, initial encounter; Y92.002 Bathroom of unspecified non-institutional (private) residence as the place of occurrence of the external cause; I50.9 Heart failure, unspecified; E11.65 Type 2 diabetes mellitus with hyperglycemia; K21.9 Gastro-esophageal reflux disease without esophagitis; I48.91 Unspecified atrial fibrillation; E66.9 Obesity, unspecified; E78.5 Hyperlipidemia, unspecified; Z79.01 Long term (current) use of anticoagulants; Z79.4 Long term (current) use of insulin; Z79.899 Other long term (current) drug therapy; Z88.6 Allergy status to analgesic agent; Z88.0 Allergy status to penicillin; Z66 Do not resuscitate; Z87.891 Personal history of nicotine dependence; Z68.33 Body mass index [BMI] 33.0-33.9, adult; Z99.81 Dependence on supplemental oxygen
CPT/HCPCS: 36415; 36600; 70450; 71010; 80048; 80053; 82803; 83605; 83735; 84100; 84484; 85025; 85610; 85730; 86140; 93005; 93306; 94660; 94760; A9270-GY; J1170; J2060; J2270; J2310; J2405; J2920